=== PATIENT | female | born 2000 | race Caucasian/White ===

== ENCOUNTER 2020-03-09 10:32 | Emergency (ER) | payer MEDICAID ==
[2020-03-09 10:53] VITALS: BP 120/85; PULSE 73
--- NOTE | 2020-03-09 11:17 | EDM.PDOC ---
ED HPI GENERAL MEDICAL PROBLEM - General Chief Complaint: Respiratory Problem Stated Complaint: COUGH RUNNY NOSE Time Seen by Provider: 03/09/20 11:02 Source of Information: Reports: RN Notes Reviewed - History of Present Illness INITIAL COMMENTS - FREE TEXT/NARRATIVE: Patient with 3-day history of dry cough, runny nose, postnasal drip, and left ear pain. She is tried nothing at home. She states she has seasonal allergies and has been swimming a lot lately. Onset: Sudden Onset Date: 03/06/20 Onset Time: 13:00 Duration: Day(s):, Waxing/Waning Location: Reports: Head (Left ear pain, runny nose, postnasal drip, dry cough, reports seasonal allergies) Quality: Reports: Pressure Severity: Moderate Improves with: Reports: Other (Has not tried anything to improve symptoms) Worsens with: Reports: None Context: Reports: Other (Seasonal allergies) Associated Symptoms: Reports: Cough (Dry) - Related Data Allergies Allergy/AdvReac Type Severity Reaction Status Date / Time No Known Allergies Allergy Verified 03/09/20 10:55 Home Meds: Home Meds Fluticasone Furoate [Flonase Sensimist] 5.9 ml NS DAILY 5 Days #1 spray.susp 03/09/20 [Rx] Neomycin/Polymyxin B Sulf/HC [Gxaypknn-Vwpqnwxaj-Du Ear Soln] 10 ml OT QID 7 Days #1 solution 03/09/20 [Rx] predniSONE [Prednisone] 20 mg PO DAILY #5 tablet 03/09/20 [Rx] Past Medical History - Past Health History Medical/Surgical History: Denies Medical/Surgical History Social & Family History - Tobacco Use Smoking Status *Q: Never Smoker Second Hand Smoke Exposure: Yes - Caffeine Use Caffeine Use: Reports: Energy Drinks, Soda ED ROS GENERAL - Review of Systems Review Of Systems: See Below Constitutional: Reports: No Symptoms HEENT: Reports: Ear Pain (Left), Rhinitis, Sinus Problem (Stuffy nose), Throat Pain (Resolved after first day). Denies: Throat Swelling Respiratory: Reports: Cough (Dry) Cardiovascular: Reports: No Symptoms Endocrine: Reports: No Symptoms GI/Abdominal: Reports: No Symptoms : Reports: No Symptoms Musculoskeletal: Reports: No Symptoms Skin: Reports: No Symptoms Neurological: Reports: No Symptoms Psychiatric: Reports: No Symptoms Hematologic/Lymphatic: Reports: No Symptoms Immunologic: Reports: No Symptoms ED EXAM, GENERAL - Physical Exam Exam: See Below Exam Limited By: No Limitations General Appearance: Alert, WD/WN, No Apparent Distress Ear Exam: Right Ear: Canal Normal, Left Ear: TM normal, Erythema, Swelling, Tenderness, Bilateral Ear: TM Dull Nose: Nasal Tenderness, Nasal Swelling, Clear Rhinorrhea, Other (Nasal piercing) Throat/Mouth: Normal Inspection, Normal Lips, Normal Teeth, Normal Gums, Normal Oropharynx, Other (Tongue piercing) Head: Atraumatic, Normocephalic Neck: Normal Inspection, Supple, Non-Tender, Full Range of Motion Respiratory/Chest: No Respiratory Distress, Lungs Clear, Normal Breath Sounds, No Accessory Muscle Use, Chest Non-Tender Cardiovascular: Normal Peripheral Pulses, Regular Rate, Rhythm, No Edema, No Gallop, No JVD, No Murmur, No Rub GI/Abdominal: Normal Bowel Sounds, Soft, Non-Tender Extremities: Normal Inspection, Normal Range of Motion Neurological: Alert, Oriented, Normal Cognition Psychiatric: Normal Affect, Normal Mood Skin Exam: Warm, Dry, Intact Course - Vital Signs Last Recorded V/S: Last Vital Signs Temp 35.7 C L 03/09/20 11:00 Pulse 73 03/09/20 11:00 Resp 16 03/09/20 11:00 BP 120/85 03/09/20 11:00 Pulse Ox 96 03/09/20 11:00 - Re-Assessments/Exams Free Text/Narrative Re-Assessment/Exam: 03/09/20 11:33 Educated patient to seasonal allergies, swimmer's ear, and self-care. Prescribed prednisone, polymyxin otic drops, and fluticasone nasal spray. Instructed patient in how to take the medication and possible side effects. Patient understands to follow-up with primary care if symptoms do not improve or has other concerns. Departure - Departure Time of Disposition: 11:34 Disposition: Home, Self-Care 01 Clinical Impression: Swimmer's ear of left side, Seasonal allergic rhinitis due to pollen - Discharge Information *PRESCRIPTION DRUG MONITORING PROGRAM REVIEWED*: No *COPY OF PRESCRIPTION DRUG MONITORING REPORT IN PATIENT ERNESTO: No Prescriptions: Fluticasone Furoate [Flonase Sensimist] 5.9 ml NS DAILY 5 Days #1 spray.susp Neomycin/Polymyxin B Sulf/HC [Ghuptght-Nqcogejup-Cv Ear Soln] 10 ml OT QID 7 Days #1 solution predniSONE [Prednisone] 20 mg PO DAILY #5 tablet Instructions: Cough, Adult, Uhzy-iu-Jbvq, Ear Drops, Adult, Svzc-ck-Gvdd, Allergic Rhinitis, Adult, Xevg-on-Hkrf Referrals: Tierra Emerson CNM [Primary Care Provider] - Forms: ED Department Discharge Additional Instructions: Take all medications as directed. Increase fluid intake. Followup with PCP if symptoms worsen to do not improve Sepsis Event Note (ED) - Evaluation Sepsis Screening Result: No Definite Risk - Focused Exam Vital Signs: Vital Signs Temp Pulse Resp BP Pulse Ox 03/09/20 11:00 35.7 C L 73 16 120/85 96 03/09/20 10:51 35.7 C L 73 16 120/85 96
== END 2020-03-09 11:34 | disposition home or self-care (01) ==
LOC: JP.ED 10:32
DX: J30.1 Allergic rhinitis due to pollen (principal); H60.332 Swimmer's ear, left ear; Z77.22 Contact with and (suspected) exposure to environmental tobacco smoke (acute) (chronic)
CPT/HCPCS: 99283

== ENCOUNTER 2020-06-07 18:51 | Emergency (ER) | payer MEDICAID ==
[2020-06-07 19:48] VITALS: BP 133/71; PULSE 62
--- NOTE | 2020-06-07 20:49 | EDM.PDOC ---
ED HPI GENERAL MEDICAL PROBLEM - General Chief Complaint: Abdominal Pain Stated Complaint: AB CRAMPS Time Seen by Provider: 06/07/20 20:15 Source of Information: Reports: Patient, Family History Limitations: Reports: No Limitations - History of Present Illness INITIAL COMMENTS - FREE TEXT/NARRATIVE: 20-year-old 0 para 0 female complains of abdominal pain worse when she stands up sometimes preventing her from working and she has to go home. Mild associated nausea without vomiting. Fever or chills. Has some food intolerance but not spicy food. No family history of gallbladder disease. no period for 4 months with normal periods prior to that she says. no Fever or chills. Says they have done multiple tests all of which have been negative. Occasionally notes some vaginal discharge but no pain on intercourse vaginal bleeding Duration: Day(s): (Several days), Intermittent, Recurring, Waxing/Waning Location: Reports: Abdomen Quality: Reports: Ache, Sharp, Stabbing Severity: Moderate Improves with: Reports: Other (No discomfort when she is laying down but worse when she stands up and walks about) Worsens with: Reports: Movement Context: Reports: Activity abd pain Pain Score (Numeric/FACES): 6 - Related Data Allergies Allergy/AdvReac Type Severity Reaction Status Date / Time codeine Allergy Rash Verified 06/07/20 19:44 Home Meds: Home Meds Fluticasone Furoate [Flonase Sensimist] 5.9 ml NS DAILY 5 Days #1 spray.susp 03/09/20 [Rx] Neomycin/Polymyxin B Sulf/HC [Xylryrzn-Hhechrkxc-Gu Ear Soln] 10 ml OT QID 7 Days #1 solution 03/09/20 [Rx] Amoxicillin 875 mg PO TID 06/07/20 [History] Citalopram [Citalopram HBr] 20 mg PO DAILY 06/07/20 [History] busPIRone HCl [Buspirone HCl] 15 mg PO BID 06/07/20 [History] Past Medical History - Past Health History Medical/Surgical History: Denies Medical/Surgical History HEENT History: Reports: Otitis Media Psychiatric History: Reports: ADHD, Anxiety, Depression - Infectious Disease History Infectious Disease History: Reports: Mononucleosis Social & Family History - Tobacco Use Tobacco Use Status *Q: Never Tobacco User - Caffeine Use Caffeine Use: Reports: Soda - Recreational Drug Use Recreational Drug Use: No ED ROS GENERAL - Review of Systems Review Of Systems: See Below Constitutional: Reports: No Symptoms HEENT: Reports: No Symptoms Respiratory: Reports: No Symptoms Cardiovascular: Reports: No Symptoms Endocrine: Reports: No Symptoms Musculoskeletal: Reports: No Symptoms Skin: Reports: No Symptoms Neurological: Reports: No Symptoms Psychiatric: Reports: No Symptoms ED EXAM, GI/ABD - Physical Exam Exam: See Below Exam Limited By: No Limitations General Appearance: Alert, WD/WN, No Apparent Distress Eyes: Bilateral: Normal Appearance Ears: Normal External Exam, Normal TMs Nose: Normal Inspection Throat/Mouth: Normal Inspection Head: Atraumatic, Normocephalic Neck: Normal Inspection Respiratory/Chest: No Respiratory Distress Cardiovascular: Normal Peripheral Pulses, Regular Rate, Rhythm, No Edema GI/Abdominal Exam: Normal Bowel Sounds, Soft, No Distention, No Mass, Other (Mild tenderness is noted on palpation deeply throughout the abdomen with no particular area with more tenderness than anywhere else) Back Exam: Normal Inspection Extremities: Normal Inspection Neurological: Alert, Oriented, Normal Cognition Psychiatric: Normal Affect, Normal Mood Skin Exam: Warm, Dry, Normal Color, No Rash Course - Vital Signs Text/Narrative:: Discussed the situation with the bindery technician who will come in and do a look at the gallbladder and pelvis Laboratory including test is ordered Of the abdomen is ordered Abdominal x-ray does show a fair amount of stool in the right abdomen but no other acute changes on my review White count chemistries are all negative. CRP is negative. Serum test is negative. Tech reports normal-looking gallbladder and liver area. Normal-looking ovaries and uterus as well We will suggest the patient try some magnesium citrate to clean out the bowel to illuminate that is an option and follow-up with her primary provider for reevaluation Last Recorded V/S: Last Vital Signs Temp 35.8 C L 06/07/20 19:47 Pulse 62 06/07/20 19:47 Resp 18 06/07/20 19:47 BP 133/71 06/07/20 19:47 Pulse Ox 98 06/07/20 19:47 - Orders/Labs/Meds Orders: Active Orders 24 hr Category Date Time Status Abdomen 1V Flat [CR] Stat Exams 06/07/20 20:54 Taken Abdomen Comp [US] Stat Exams 11/07/20 20:40 Taken Pelvis Non OB Comp [US] Stat Exams 06/07/20 20:38 Taken Labs: Laboratory Tests 06/07/20 06/07/20 06/07/20 Range/Units 21:06 21:06 21:06 WBC 6.9 (4.5-11.0) K/uL RBC 4.82 (3.30-5.50) M/uL Hgb 13.3 (12.0-15.0) g/dL Hct 41.2 (36.0-48.0) % MCV 86 (80-98) fL MCH 28 (27-31) pg MCHC 32 (32-36) % Plt Count 348 (150-400) K/uL Sodium 139 L (140-148) mmol/L Potassium 3.7 (3.6-5.2) mmol/L Chloride 102 (100-108) mmol/L Carbon Dioxide 28 (21-32) mmol/L Anion Gap 12.7 (5.0-14.0) mmol/L BUN 13 (7-18) mg/dL Creatinine 0.8 (0.6-1.0) mg/dL Est Cr Clr Drug Dosing 84.65 mL/min Estimated GFR (MDRD) > 60 (>60) Glucose 96 (74-106) mg/dL Calcium 9.3 (8.5-10.1) mg/dL Total Bilirubin 0.5 (0.2-1.0) mg/dL AST 18 (15-37) U/L ALT 22 (12-78) U/L Alkaline Phosphatase 46 (46-116) U/L C-Reactive Protein 0.28 (0.0-0.3) mg/dL Total Protein 7.7 (6.4-8.2) g/dL Albumin 4.1 (3.4-5.0) g/dL Globulin 3.6 H (2.3-3.5) g/dL Albumin/Globulin Ratio 1.1 L (1.2-2.2) HCG, Qual Negative Urine Color (YELLOW) Urine Appearance (CLEAR) Urine pH (5.0-8.0) Ur Specific [place] (1.008-1.030) Urine Protein (NEGATIVE) mg/dL Urine Glucose (UA) (NEGATIVE) mg/dL Urine Ketones (NEGATIVE) mg/dL Urine Occult Blood (NEGATIVE) Urine Nitrite (NEGATIVE) Urine Bilirubin (NEGATIVE) Urine Urobilinogen (0.2-1.0) EU/dL Ur Leukocyte Esterase (NEGATIVE) Urine RBC (0-5) Urine WBC (0-5) Ur Epithelial Cells Urine Bacteria 06/07/20 Range/Units 21:48 WBC (4.5-11.0) K/uL RBC (3.30-5.50) M/uL Hgb (12.0-15.0) g/dL Hct (36.0-48.0) % MCV (80-98) fL MCH (27-31) pg MCHC (32-36) % Plt Count (150-400) K/uL Sodium (140-148) mmol/L Potassium (3.6-5.2) mmol/L Chloride (100-108) mmol/L Carbon Dioxide (21-32) mmol/L Anion Gap (5.0-14.0) mmol/L BUN (7-18) mg/dL Creatinine (0.6-1.0) mg/dL Est Cr Clr Drug Dosing mL/min Estimated GFR (MDRD) (>60) Glucose (74-106) mg/dL Calcium (8.5-10.1) mg/dL Total Bilirubin (0.2-1.0) mg/dL AST (15-37) U/L ALT (12-78) U/L Alkaline Phosphatase (46-116) U/L C-Reactive Protein (0.0-0.3) mg/dL Total Protein (6.4-8.2) g/dL Albumin (3.4-5.0) g/dL Globulin (2.3-3.5) g/dL Albumin/Globulin Ratio (1.2-2.2) HCG, Qual Urine Color Yellow (YELLOW) Urine Appearance Clear (CLEAR) Urine pH 7.0 (5.0-8.0) Ur Specific [place] 1.010 (1.008-1.030) Urine Protein Negative (NEGATIVE) mg/dL Urine Glucose (UA) Negative (NEGATIVE) mg/dL Urine Ketones Negative (NEGATIVE) mg/dL Urine Occult Blood Large H (NEGATIVE) Urine Nitrite Negative (NEGATIVE) Urine Bilirubin Negative (NEGATIVE) Urine Urobilinogen 0.2 (0.2-1.0) EU/dL Ur Leukocyte Esterase Small H (NEGATIVE) Urine RBC Not seen (0-5) Urine WBC Not seen (0-5) Ur Epithelial Cells Not seen Urine Bacteria Not seen Meds: Medications Discontinued Medications Generic Name Dose Route Start Last Admin Trade Name Dana PRN Reason Stop Dose Admin Magnesium Citrate 296 ml 06/07/20 22:17 06/07/20 22:32 Citrate Of Magnesia PO 06/07/20 22:18 296 ml ONETIME ONE Administration Departure - Departure Time of Disposition: 22:20 Disposition: Home, Self-Care 01 Clinical Impression: Abdominal pain, Constipation - Discharge Information Instructions: Constipation, Adult Referrals: PCP,None [Primary Care Provider] - Forms: ED Department Discharge Additional Instructions: Given a bottle of mag citrate in the department. Drink one half of the bottle and then an hour or 2 later the second half of the bottle and water Sepsis Event Note (ED) - Evaluation Sepsis Screening Result: No Definite Risk - My Orders Last 24 Hours: My Active Orders 06/07/20 20:38 Pelvis Non OB Comp [US] Stat 06/07/20 20:40 Abdomen Comp [US] Stat 06/07/20 20:54 Abdomen 1V Flat [CR] Stat - Assessment/Plan Last 24 Hours: My Active Orders 06/07/20 20:38 Pelvis Non OB Comp [US] Stat 06/07/20 20:40 Abdomen Comp [US] Stat 06/07/20 20:54 Abdomen 1V Flat [CR] Stat
--- NOTE | 2020-06-07 22:15 | EDM.PDOC ---
ED HPI GENERAL MEDICAL PROBLEM - General Chief Complaint: Abdominal Pain Stated Complaint: AB CRAMPS Time Seen by Provider: 06/07/20 20:15 Source of Information: Reports: Patient, Family History Limitations: Reports: No Limitations - History of Present Illness INITIAL COMMENTS - FREE TEXT/NARRATIVE: 20-year-old 0 para 0 female complains of abdominal pain worse when she stands up sometimes preventing her from working and she has to go home. Mild associated nausea without vomiting. Fever or chills. Has some food intolerance but not spicy food. No family history of gallbladder disease. no period for 4 months with normal periods prior to that she says. no Fever or chills. Says they have done multiple tests all of which have been negative. Occasionally notes some vaginal discharge but no pain on intercourse vaginal bleeding Duration: Day(s): (Several days), Intermittent, Recurring, Waxing/Waning Location: Reports: Abdomen Quality: Reports: Ache, Sharp, Stabbing Severity: Moderate Improves with: Reports: Other (No discomfort when she is laying down but worse when she stands up and walks about) Worsens with: Reports: Movement Context: Reports: Activity abd pain Pain Score (Numeric/FACES): 6 - Related Data Allergies Allergy/AdvReac Type Severity Reaction Status Date / Time codeine Allergy Rash Verified 06/07/20 19:44 Home Meds: Home Meds Fluticasone Furoate [Flonase Sensimist] 5.9 ml NS DAILY 5 Days #1 spray.susp 03/09/20 [Rx] Neomycin/Polymyxin B Sulf/HC [Ksyqfedg-Ifzcrxfbn-Rl Ear Soln] 10 ml OT QID 7 Days #1 solution 03/09/20 [Rx] Amoxicillin 875 mg PO TID 06/07/20 [History] Citalopram [Citalopram HBr] 20 mg PO DAILY 06/07/20 [History] busPIRone HCl [Buspirone HCl] 15 mg PO BID 06/07/20 [History] Past Medical History - Past Health History Medical/Surgical History: Denies Medical/Surgical History HEENT History: Reports: Otitis Media Psychiatric History: Reports: ADHD, Anxiety, Depression - Infectious Disease History Infectious Disease History: Reports: Mononucleosis Social & Family History - Tobacco Use Tobacco Use Status *Q: Never Tobacco User - Caffeine Use Caffeine Use: Reports: Soda - Recreational Drug Use Recreational Drug Use: No ED ROS GENERAL - Review of Systems Review Of Systems: Comprehensive ROS is negative, except as noted in HPI. Constitutional: Reports: No Symptoms HEENT: Reports: No Symptoms Respiratory: Reports: No Symptoms Cardiovascular: Reports: No Symptoms GI/Abdominal: Reports: Abdominal Pain : Reports: No Symptoms Musculoskeletal: Reports: No Symptoms Skin: Reports: No Symptoms Neurological: Reports: No Symptoms ED EXAM, GI/ABD - Physical Exam Exam: See Below Text/Narrative:: [place] female in no distress eyes ears nose and throat are entirely normal. Chest clear regular rate and rhythm. Abdomen [place] flank tenderness but no focal tenderness and no masses. Bowel sounds present. Skin extremities otherwise normal. Course - Vital Signs Text/Narrative:: 20-year-old female with intermittent abdominal pain for the last week at least apparently severe enough for her to go home at times. No pain when she lays down. Physical exam was basically negative with minimal tenderness in the abdomen. The flatplate of the abdomen did show a fair amount of stool on the right side. Her ultrasound was negative for tach and the transabdominal pelvic ultrasound was also negative with normal ovary of disappearing and uterus. Chemistries were all normal. CRP is negative. test serum is negative. Parenteral discussed with the patient. Does not have a surgical abdomen. Nothing obvious other than possible constipation. We will give her a trial on mag citrate and eliminate that problem and refer her to primary medicine for reevaluation to return for new or worse symptoms Last Recorded V/S: Last Vital Signs Temp 35.8 C L 06/07/20 19:47 Pulse 62 06/07/20 19:47 Resp 18 06/07/20 19:47 BP 133/71 06/07/20 19:47 Pulse Ox 98 06/07/20 19:47 - Orders/Labs/Meds Orders: Active Orders 24 hr Category Date Time Status Abdomen 1V Flat [CR] Stat Exams 06/07/20 20:54 Taken Abdomen Comp [US] Stat Exams 06/07/20 20:40 Ordered Pelvis Non OB Comp [US] Stat Exams 06/07/20 20:38 Ordered Labs: Laboratory Tests 06/07/20 06/07/20 06/07/20 Range/Units 21:06 21:06 21:06 WBC 6.9 (4.5-11.0) K/uL RBC 4.82 (3.30-5.50) M/uL Hgb 13.3 (12.0-15.0) g/dL Hct 41.2 (36.0-48.0) % MCV 86 (80-98) fL MCH 28 (27-31) pg MCHC 32 (32-36) % Plt Count 348 (150-400) K/uL Sodium 139 L (140-148) mmol/L Potassium 3.7 (3.6-5.2) mmol/L Chloride 102 (100-108) mmol/L Carbon Dioxide 28 (21-32) mmol/L Anion Gap 12.7 (5.0-14.0) mmol/L BUN 13 (7-18) mg/dL Creatinine 0.8 (0.6-1.0) mg/dL Est Cr Clr Drug Dosing 84.65 mL/min Estimated GFR (MDRD) > 60 (>60) Glucose 96 (74-106) mg/dL Calcium 9.3 (8.5-10.1) mg/dL Total Bilirubin 0.5 (0.2-1.0) mg/dL AST 18 (15-37) U/L ALT 22 (12-78) U/L Alkaline Phosphatase 46 (46-116) U/L C-Reactive Protein 0.28 (0.0-0.3) mg/dL Total Protein 7.7 (6.4-8.2) g/dL Albumin 4.1 (3.4-5.0) g/dL Globulin 3.6 H (2.3-3.5) g/dL Albumin/Globulin Ratio 1.1 L (1.2-2.2) HCG, Qual Negative Urine Color (YELLOW) Urine Appearance (CLEAR) Urine pH (5.0-8.0) Ur Specific [place] (1.008-1.030) Urine Protein (NEGATIVE) mg/dL Urine Glucose (UA) (NEGATIVE) mg/dL Urine Ketones (NEGATIVE) mg/dL Urine Occult Blood (NEGATIVE) Urine Nitrite (NEGATIVE) Urine Bilirubin (NEGATIVE) Urine Urobilinogen (0.2-1.0) EU/dL Ur Leukocyte Esterase (NEGATIVE) Urine RBC (0-5) Urine WBC (0-5) Ur Epithelial Cells Urine Bacteria 06/07/20 Range/Units 21:48 WBC (4.5-11.0) K/uL RBC (3.30-5.50) M/uL Hgb (12.0-15.0) g/dL Hct (36.0-48.0) % MCV (80-98) fL MCH (27-31) pg MCHC (32-36) % Plt Count (150-400) K/uL Sodium (140-148) mmol/L Potassium (3.6-5.2) mmol/L Chloride (100-108) mmol/L Carbon Dioxide (21-32) mmol/L Anion Gap (5.0-14.0) mmol/L BUN (7-18) mg/dL Creatinine (0.6-1.0) mg/dL Est Cr Clr Drug Dosing mL/min Estimated GFR (MDRD) (>60) Glucose (74-106) mg/dL Calcium (8.5-10.1) mg/dL Total Bilirubin (0.2-1.0) mg/dL AST (15-37) U/L ALT (12-78) U/L Alkaline Phosphatase (46-116) U/L C-Reactive Protein (0.0-0.3) mg/dL Total Protein (6.4-8.2) g/dL Albumin (3.4-5.0) g/dL Globulin (2.3-3.5) g/dL Albumin/Globulin Ratio (1.2-2.2) HCG, Qual Urine Color Yellow (YELLOW) Urine Appearance Clear (CLEAR) Urine pH 7.0 (5.0-8.0) Ur Specific [place] 1.010 (1.008-1.030) Urine Protein Negative (NEGATIVE) mg/dL Urine Glucose (UA) Negative (NEGATIVE) mg/dL Urine Ketones Negative (NEGATIVE) mg/dL Urine Occult Blood Large H (NEGATIVE) Urine Nitrite Negative (NEGATIVE) Urine Bilirubin Negative (NEGATIVE) Urine Urobilinogen 0.2 (0.2-1.0) EU/dL Ur Leukocyte Esterase Small H (NEGATIVE) Urine RBC Not seen (0-5) Urine WBC Not seen (0-5) Ur Epithelial Cells Not seen Urine Bacteria Not seen Departure - Departure Time of Disposition: 22:12 Disposition: Home, Self-Care 01 Condition: Good Clinical Impression: Abdominal pain, Constipation - Discharge Information Instructions: Constipation, Adult Referrals: PCP,None [Primary Care Provider] - Forms: ED Department Discharge Additional Instructions: Given a bottle of mag citrate in the department. Drink one half of the bottle and then an hour or 2 later the second half of the bottle and water Sepsis Event Note (ED) - Evaluation Sepsis Screening Result: No Definite Risk - Focused Exam Vital Signs: Vital Signs Temp Pulse Resp BP Pulse Ox 06/07/20 19:47 35.8 C L 62 18 133/71 98 - My Orders Last 24 Hours: My Active Orders 06/07/20 20:38 Pelvis Non OB Comp [US] Stat 06/07/20 20:40 Abdomen Comp [US] Stat 06/07/20 20:54 Abdomen 1V Flat [CR] Stat - Assessment/Plan Last 24 Hours: My Active Orders 06/07/20 20:38 Pelvis Non OB Comp [US] Stat 06/07/20 20:40 Abdomen Comp [US] Stat 06/07/20 20:54 Abdomen 1V Flat [CR] Stat
[2020-06-07] MEDS ORDERED: Magnesium Citrate Solution 296 ML Bottle PO ONE (22:17)
--- NOTE | 2020-06-09 09:50 | CR ---
Abdomen 1V Flat CLINICAL HISTORY: Intermittent abdominal pain FINDINGS: Small intestinal gas pattern is nonspecific. No free air is seen. There is some fecal retention throughout the right and transverse colon IMPRESSION: Nonacute intestinal gas pattern There is some fecal retention
--- NOTE | 2020-06-09 10:29 | US ---
Abdomen Comp CLINICAL HISTORY: Intermittent abdominal pain COMPARISON: None. TECHNIQUE: Real-time images were obtained through the right upper quadrant. FINDINGS: The liver is free of mass or biliary dilatation. There is normal hepatic echotexture throughout. The gallbladder has a normal appearance. The common bile duct measures 3 mm. The pancreas is free of mass as seen. The right kidney has a normal appearance. The IVC is normal. IMPRESSION: Negative right upper quadrant ultrasound
--- NOTE | 2020-06-09 10:32 | US ---
Pelvis Non OB Comp CLINICAL HISTORY: Amenorrhea FINDINGS: Real-time transabdominal images were obtained through the abdomen. Uterus measures 7.1 x 5.0 x 3.9 cm. There is a homogeneous myometrial echotexture throughout. Endometrial stripe measures 4 mm which is normal. Right ovary measures 3.5 x 2.4 x 1.9 cm. The left ovary measures 2.8 x 2.6 x 1.7 cm. There is normal flow in both. No mass or abnormal fluid collection seen IMPRESSION: Essentially negative pelvic ultrasound
== END 2020-06-07 22:34 | disposition home or self-care (01) ==
LOC: JP.ED 18:51
DX: K59.00 Constipation, unspecified (principal); F41.9 Anxiety disorder, unspecified; F32.9 Major depressive disorder, single episode, unspecified; Z88.5 Allergy status to narcotic agent; Z79.899 Other long term (current) drug therapy
CPT/HCPCS: 36415; 74018; 76700; 76856; 80053; 81001; 84703; 85027; 86140; 99284; A9270; 99283